=== PATIENT | female | born 1945 | race Caucasian/White ===

== ENCOUNTER 2018-07-28 13:47 | Outpatient (CLI) | payer MEDICARE, BC ==
--- NOTE | 2018-07-28 15:05 | BD ---
DEXA SCAN: INDICATION: History of osteoporosis screening. COMPARISON: Prior exam dated 05/10/2017. FINDINGS: Lumbar Spine: BMD (g/cm2) L1 0.639 T-Score: -3.2 Z-Score: -1.2 L2 0.765 T-Score: -2.4 Z-Score: -0.2 L3 0.740 T-Score: -3.1 Z-Score: -0.8 L4 0.749 T-Score: -2.8 Z-Score: -0.4 L1-L4 0.725 T-Score: -2.9 Z-Score: -0.7 Femoral Neck: 0.712 T-Score: -1.2 Z-Score: 0.7 Total Femur: 0.851 T-Score: -0.7 Z-Score: 0.9 Impression: Since the comparison examination, the bone mineral density for this patient remains osteoporotic. Th e patient is at high risk for fracture. This has not appreciably changed from the comparison study i 2016. POS: [facility]
== END 2018-07-28 13:48 | disposition home or self-care (01) ==
LOC: BICMAMMO 13:47
PROVIDERS: ATTEND Internal Medicine
DX: Z12.31 Encounter for screening mammogram for malignant neoplasm of breast (principal); M81.0 Age-related osteoporosis without current pathological fracture; M85.89 Other specified disorders of bone density and structure, multiple sites; R92.1 Mammographic calcification found on diagnostic imaging of breast; Z85.89 Personal history of malignant neoplasm of other organs and systems
CPT/HCPCS: 77063; 77067; 77080

== ENCOUNTER 2022-12-09 11:37 | Day surgery (SDC) | payer MEDICARE, BC ==
[~2022-12-09 11:37] MED LIST: Denosumab 60 MG/ML SQ SCH
[2022-12-09 11:50] VITALS: BP 143/66; TEMP 97.6
== END 2022-12-09 12:19 | disposition home or self-care (01) ==
LOC: ONC/OP 11:37
PROVIDERS: ATTEND Internal Medicine
DX: M81.0 Age-related osteoporosis without current pathological fracture (principal)
CPT/HCPCS: 96372; J0897

== ENCOUNTER 2023-07-04 10:41 | Day surgery (SDC) | payer MEDICARE, BC ==
[2023-07-04 11:04] VITALS: BP 137/70; TEMP 98.1
== END 2023-07-04 11:15 | disposition home or self-care (01) ==
LOC: ONC/OP 10:41
PROVIDERS: ATTEND Internal Medicine
DX: M81.0 Age-related osteoporosis without current pathological fracture (principal)
CPT/HCPCS: 96372; J0897

== ENCOUNTER 2024-03-06 15:33 | Outpatient (CLI) | payer MEDICARE | END 2024-03-06 15:34 | disposition home or self-care (01) | LOC: SCSRAD 15:33 | PROVIDERS: ATTEND Nurse Practitioner Family | DX: S59.901A Unspecified injury of right elbow, initial encounter (principal) ==

== ENCOUNTER 2024-06-19 07:23 | Outpatient (CLI) | payer MEDICARE | END 2024-06-19 07:24 | disposition home or self-care (01) | LOC: NM 07:23 | PROVIDERS: ATTEND Internal Medicine | DX: E83.52 Hypercalcemia (principal) | CPT/HCPCS: 78072; A9500 ==

== ENCOUNTER 2024-07-09 10:47 | Day surgery (SDC) | payer MEDICARE ==
[2024-07-09] MEDS: Denosumab 60 MG/ML SQ SCH (11:13)
[2024-07-09 11:23] VITALS: BP 124/68; TEMP 97.8
== END 2024-07-09 11:23 | disposition home or self-care (01) ==
LOC: ONC/OP 10:47
PROVIDERS: ATTEND Internal Medicine
DX: M81.0 Age-related osteoporosis without current pathological fracture (principal)
CPT/HCPCS: 96372; J0897

== ENCOUNTER 2025-08-21 09:59 | Day surgery (SDC) | payer MEDICARE ==
[2025-08-21 10:17] VITALS: BP 126/89; TEMP 97.6
== END 2025-08-21 10:42 | disposition home or self-care (01) ==
LOC: ONC/OP 09:59
PROVIDERS: ATTEND Internal Medicine
DX: M81.0 Age-related osteoporosis without current pathological fracture (principal)
CPT/HCPCS: 96372; J0897